=== PATIENT | male | born 1990 | race Caucasian/White ===

== ENCOUNTER 2017-10-15 15:47 | Emergency (ER) | payer OTHER ==
[~2017-10-15] VITALS: Ht 167.6 cm; Wt 88.6 kg
[~2017-10-15 15:47] MED LIST: AZIT250T12 PO; BENZ200C51 PO; CYCL5TAB; HYDR-34; IBUP-1780; ONDA4TAB8 SL; OXYC-197 PO; PRED-501 PO; RT-ALBUINH IH
--- NOTE | 2017-10-15 16:08 | ED Back Pain ---
General Chief Complaint: Back Problems Stated Complaint: L LEG AND BACK PAIN, L FOOT NUMBNESS Source of Information: Patient Exam Limitations: No Limitations History of Present Illness Date Seen by Provider: Oct 15, 2017 Time Seen by Provider: 16:03 Initial Comments Patient presents to the emergency room with complaints of low back pain numbness and tingling of the left leg for 3 weeks he states that he is been seen twice by urgent cares and has been put on gabapentin steroids and muscle relaxers. Patient reports numbness to the genitals and having to force himself to urinate. Denies recent injury fever chills history of cancer. History of bulging disks in the past. Location: Lumbar Spine Timing/Duration: Other (3 weeks) Severity: Mild Pain/Injury Location: Back Radiation: Buttocks, Feet, Lower Legs (left) Method of Injury: Unknown Associated Symptoms: numbness in legs/feet (left leg), other (numbness to the genitals) Allergies and Home Medications Allergies Coded Allergies: Penicillins (Verified Allergy, Unknown, 09/26/06) Home Medications Albuterol Sulfate 8.5 Gm Hfa.aer.ad, 1-4 PUFF IH Q4H PRN for SHORTNESS OF BREATH , #1 Prescribed by: JOSE KERN on 11/21/15 0905 Azithromycin 250 Mg Tablet, 250 MG PO UD, #6 TAKE 2 TABLETS ON DAY ONE THEN TAKE 1 TABLET DAILY FOR FOUR MORE DAYS Prescribed by: JOSE KERN on 11/21/15 0905 Benzonatate 200 Mg Capsule, 200 MG PO TID PRN for COUGH, #20 Prescribed by: JOSE KERN on 11/21/15 0905 Cyclobenzaprine HCl 5 Mg Tablet, #30 (Reported) Hydrocodone Bit/Acetaminophen 1 Each Tablet, #56 (Reported) Ibuprofen 800 Mg Tablet, #90 (Reported) Oxycodone HCl/Acetaminophen 1 Each Tablet, 1-2 EACH PO Q6H PRN for PAIN, #20 Prescribed by: JOSE KERN on 06/07/15 1349 Prednisone 20 Mg Tablet, 20 MG PO DAILY, #20 Prescribed by: JOSE KERN on 11/21/15 0905 Constitutional: no symptoms reported, see HPI EENTM: see HPI, no symptoms reported Respiratory: no symptoms reported, see HPI Cardiovascular: no symptoms reported, see HPI Gastrointestinal: no symptoms reported, see HPI Genitourinary: see HPI, other (numbness to the genitals, feels like he has to force himself to urinate) Musculoskeletal: see HPI, back pain Skin: no symptoms reported Psychiatric/Neurological: No Symptoms Reported, See HPI Past Qcguulu-Sqiuhu-Hjonfn Hx Patient Social History Recent Foreign Travel: No Contact w/Someone Who Travel: No Immunizations Up To Date Tetanus Booster (TDap): More than 5yrs Date of Influenza Vaccine: Jun 16, 2015 Surgeries Surgeries: Appendectomy Reproductive System Hx Reproductive Disorders: No Sexually Transmitted Disease: No Genitourinary Genitourinary Disorders: Kidney Stones Family Medical History Significant Family History: Heart Disease, Cancer, CAD Under 55 Years Old, DVT/ PE, Diabetes, Hypertension Physical Exam Vital Signs Vital Signs - First Documented 10/15/17 16:00 Temp 97.1 Pulse 86 Resp 20 B/P (MAP) 153/100 (117) Pulse Ox 99 O2 Delivery Room Air Capillary Refill : General Appearance: No Apparent Distress, WD/WN Respiratory: No Accessory Muscle Use, No Respiratory Distress Back: Normal Inspection, Other (positive left straight leg test) Neurologic/Psychiatric: Alert, Oriented x3, Other (patellar reflexes equal and present bilaterally. Bilaterally lower flexion and extension 5 out of 5) Skin: Normal Color, Warm/Dry Progress/Results/Core Measures Results/Orders Lab Results Laboratory Tests Test 10/15/17 16:35 Range/Units Urine Color YELLOW Urine Clarity CLEAR Urine pH 7 5-9 Urine Specific Kemp 1.010 L 1.016-1.022 Urine Protein NEGATIVE NEGATIVE Urine Glucose (UA) NEGATIVE NEGATIVE Urine Ketones NEGATIVE NEGATIVE Urine Nitrite NEGATIVE NEGATIVE Urine Bilirubin NEGATIVE NEGATIVE Urine Urobilinogen 1 NORMAL MG/DL Urine Leukocyte Esterase 1+ H NEGATIVE Urine RBC (Auto) NEGATIVE NEGATIVE Urine RBC NONE /HPF Urine WBC 2-5 /HPF Urine Crystals PRESENT H /LPF Urine Amorphous Sediment MOD KAMLESH PHOSPHATE H /LPF Urine Bacteria NEGATIVE /HPF Urine Casts NONE /LPF Urine Mucus MODERATE H /LPF Urine Culture Indicated NO Urine Opiates Screen NEGATIVE NEGATIVE Urine Oxycodone Screen POSITIVE H NEGATIVE Urine Methadone Screen NEGATIVE NEGATIVE Urine Propoxyphene Screen NEGATIVE NEGATIVE Urine Barbiturates Screen NEGATIVE NEGATIVE Ur Tricyclic Antidepressants Screen NEGATIVE NEGATIVE Urine Phencyclidine Screen NEGATIVE NEGATIVE Urine Amphetamines Screen NEGATIVE NEGATIVE Urine Methamphetamines Screen NEGATIVE NEGATIVE Urine Benzodiazepines Screen NEGATIVE NEGATIVE Urine Cocaine Screen NEGATIVE NEGATIVE Urine Cannabinoids Screen NEGATIVE NEGATIVE My Orders Orders - NICKY LOPEZ APRN Mri Lumbar Spine W/O Contrast (10/15/17 16:02) Ua Culture If Indicated (10/15/17 16:15) Drug Screen Stat (Urine) (10/15/17 16:15) Vital Signs/I&O Vital Sign - Last 12Hours 10/15/17 16:00 Temp 97.1 Pulse 86 Resp 20 B/P (MAP) 153/100 (117) Pulse Ox 99 O2 Delivery Room Air Diagnostic Imaging Diagonstic Imaging: MRI Comments NAME: LOUISA LEWIS [facility] REC#: [id number] PT STATUS: REG ER : 1990 PHYSICIAN: NICKY LOPEZ APRN ADMIT DATE: 10/15/17/ER Signed Date of Exam:10/15/17 MRI LUMBAR SPINE W/O CONTRAST PROCEDURE: MRI lumbar spine. TECHNIQUE: Multiplanar, multisequence MRI of the lumbar spine was performed without contrast. INDICATION: Low back pain with left leg sciatica for three weeks. FINDINGS: There is normal height and alignment of the lumbar vertebral bodies. The upper levels are normal. At L4-5, there is a broad-based disc protrusion slightly centered to the left, which is causing mass effect upon the left lateral recess. There is no bony stenosis. L5-S1 is normal. IMPRESSION: There is broad-based disc protrusion slightly eccentric to the left at L4-5. Dictated by: Dictated on workstation # [id number] Dict: 10/15/171816 Trans: 10/15/171819 [id number] Interpreted by: FILI MILLER MD Electronically signed by: FILI MILLER MD 10/15/171819 Departure Communication (Admissions) Progress Notes 1835- Dr. Chandler from orthopedics is not on-call tonight but was gracious enough to take my call and answers questions. He agrees that this could be followed up in the outpatient setting but does not require immediate surgical consult and since the patient has sensation of needing to urinate that would make this unlikely to be a neurogenic bladder symptom. Impression Impression: Primary Impression: Lumbar radiculopathy Disposition: 01 HOME, SELF-CARE Condition: Stable Departure-Patient Inst. Decision time for Depature: 18:36 Referrals: ALTAGRACIA CHANDLER,LOCAL PHYSICIAN (PCP) Primary Care Physician Patient Instructions: Low Back Pain (DC) Add. Discharge Instructions: 1. Call Dr. Chandler tomorrow to make an appointment to be seen whenever they can get nightly 2. Return to ER for any worsening symptoms or other concerns. Follow-up with your primary care provider is well within 2 weeks. All discharge instructions reviewed with patient and/or family. Voiced understanding. Scripts Hydrocodone/Acetaminophen ([place] 5-325 Tablet) 1 Each Tablet 1 EACH PO Q4H Y for PAIN-SEVERE, #20 TAB Prov: NICKY LOPEZ APRN 10/15/17 Work/School Note: Work Release Form Date Seen in the Emergency Department: Oct 15, 2017 Return to Work: Oct 18, 2017 NICKY LOPEZ APRN Oct 15, 2017 16:08
[2017-10-15 16:42] LABS: BILIRUBIN,URINE NEGATIVE (NEGATIVE); CLARITY,URINE CLEAR; COLOR,URINE YELLOW; GLUCOSE, URINE (UA) NEGATIVE (NEGATIVE); KETONES,URINE NEGATIVE (NEGATIVE); LEUKOCYTE ESTERASE ,URINE 1+ (NEGATIVE); NITRITE,URINE NEGATIVE (NEGATIVE); PH,URINE 7 (5-9); PROTEIN,URINE NEGATIVE (NEGATIVE); UROBILINOGEN,URINE 1 MG/DL (NORMAL)
[2017-10-15 16:55] LABS: AMPHETAMINE SCREEN, URINE NEGATIVE (NEGATIVE); BARBITURATE SCREEN URINE NEGATIVE (NEGATIVE); BENZODIAZEPINES SCREEN URINE NEGATIVE (NEGATIVE); CANNABINOID SCREEN, URINE NEGATIVE (NEGATIVE); COCAINE SCREEN URINE NEGATIVE (NEGATIVE); METHADONE STAT NEGATIVE (NEGATIVE); METHAMPHETAMINE SCREEN URINE S NEGATIVE (NEGATIVE); OPIATE SCREEN URINE NEGATIVE (NEGATIVE); OXYCODONE STAT POSITIVE (NEGATIVE); PROPOXYPHENE STAT NEGATIVE (NEGATIVE); TRICYCLIC ANTIDEPRESSANTS SCRE NEGATIVE (NEGATIVE)
[2017-10-15 17:35] LABS: AMORPHOUS SEDIMENT,UR MOD AMOR PHOSPHATE /LPF; BACTERIA,URINE NEGATIVE /HPF
--- NOTE | 2017-10-15 18:19 | Diagnostic Imaging Report ---
PROCEDURE: MRI lumbar spine. TECHNIQUE: Multiplanar, multisequence MRI of the lumbar spine was performed without contrast. INDICATION: Low back pain with left leg sciatica for three weeks. FINDINGS: There is normal height and alignment of the lumbar vertebral bodies. The upper levels are normal. At L4-5, there is a broad-based disc protrusion slightly centered to the left, which is causing mass effect upon the left lateral recess. There is no bony stenosis. L5-S1 is normal. IMPRESSION: There is broad-based disc protrusion slightly eccentric to the left at L4-5. Dictated by: Dictated on workstation # [id number]
[2017-10-15] MEDS ORDERED: HYDR-757 PO (18:37)
[2017-10-15 18:45] VITALS: BP 153/100
--- OUTSIDE RECORDS SUMMARY | 2017-10-17 14:27 | XMS REPORT ---
Author Author AZAM SANTOS Organization [facility] Address [address] [place] [address] Care Team Providers Care Supervisor Pairing And Inspecting Name Role Phone AZAM SANTOS Unavailable PROBLEMS Type Condition ICD9-CM Code [id number] Code Onset Dates Condition Status SNOMED Code Problem Pain in unspecified hip M25.559 Active 106298360 Problem Low back pain M54.5 Active 683114562 Problem Chronic pain G89.29 Active 98460699 Problem Hx of hyperlipidemia Z86.39 Active 414607942 ALLERGIES Substance Reaction Event Type Date Status Penicillin G Benzathine Unknown Drug Allergy December, Active SOCIAL HISTORY Never Assessed PLAN OF CARE Activity Details Follow Up prn Reason: VITAL SIGNS Height 66 in 2016-12-31 Weight 228.8 lbs 2016-12-31 Temperature 97.3 degrees Fahrenheit 2016-12-31 Heart Rate 84 bpm 2016-12-31 Respiratory Rate 20 2016-12-31 BMI 36.93 kg/m2 2016-12-31 Blood pressure systolic 130 mmHg 2016-12-31 Blood pressure diastolic 76 mmHg 2016-12-31 MEDICATIONS Medication Instructions Dosage Frequency Start Date End Date Duration Status Azithromycin 250 MG Orally Once a day 2 tablets on the first day, then 1 tablet daily for 4 days 24h December, December, 5 day(s) Active Ibuprofen 800 MG Orally Three times a day 1 tablet 8h 30 day(s) Active Cyclobenzaprine HCl 5 MG Orally at hs prn 1 tablet Active Hydrocodone-Acetaminophen 5-325 MG Orally twice daily 1 tablet as needed Active RESULTS Name Result Date Reference Range STREP A (IN HOUSE) 2016-12-31 STREP A negative Control + Lot # [id number] Exp date jun 19 PROCEDURES Procedure Date Ordered Result Body Site STREP A ASSAY W/OPTIC December 31, 2016 IMMUNIZATIONS No Known Immunizations MEDICAL (GENERAL) HISTORY Type Description Date Medical History Chronic hip and back pain Surgical History hip surgery 04/2012 Surgical History appendectomy 09/2006 Hospitalization History Surgery(s) only
--- OUTSIDE RECORDS SUMMARY | 2017-10-17 14:27 | XMS REPORT | Continuity of Care Document ---
Author Author [facility] Address [address] [place] [address] Care Team Providers Care Sap Portal Consultant Name Role Phone Unavailable Unavailable Insurance Providers Payer Name Policy Number Subscriber Name Relationship * [id number] LOUISA LEWIS PATIENT/SELF Advance Directives Directive Response Recorded Date/Time Advance Directive Information: AD INFO NOT OBTAINABLE 04/13/17 12:05pm Chief Complaint and Reason for Visit Reason for Visit BACK PAIN Problems Active Medical Problems Problem Onset Date Recorded Date Status Low back pain Unknown 04/13/17 Active Medications Current Home Medications Medication Dose Units Route Directions Days/Qty Instructions Start Date Hydrocodone/Acetaminophen (Hydrocodone/Apap 5/325) 1 EACH TABLET 1 TAB BY MOUTH EVERY 6 HOURS NEEDED PRN pain 15 04/13/17 Ibuprofen* (MOTRIN*) 200 MG TABLET 800 MG BY MOUTH EVERY 6 HOURS NEEDED PRN PAIN [MUSCLE RELAXANT] (Unknown Strength) TAB Unknown Dose BY MOUTH 3 TIMES DAILY NEEDED PRN MUSCLE SPASMS Prednisone 20 MG TABLET 20 MG BY MOUTH THREE TIMES DAILY 15 04/13/17 Social History No social history. Hospital Discharge Instructions No hospital discharge instructions. Plan of Care Discharge Date 04/13/17 Disposition HOME/SELF CARE Condition at Discharge Improved Instructions/Education Provided Sciatica (ED) Acute Low Back Pain (ED) How to Quit Using Smokeless Tobacco (ED) Prescriptions See Medications Section Additional Instructions/Education Follow up early next week for a recheck and a possible MRI. Return to the ED as needed. Care Plan and Goals Problem: Back Pain Goal: Relief of back pain. Plan: Refer to patient instructions provided. Functional Status No functional status results. Allergies, Adverse Reactions, Alerts Allergen Type Severity Reaction Status Last Updated PENICILLINS Allergy Unknown Active 04/13/17 Immunizations Name Date Given Type *Flu Shot: Historical *Tetanus Shot: Up To Date Historical Vital Signs Vital Reading Collection Date/Time Result Blood Pressure 04/13/17 2:08pm 141/75 Patient Temperature 04/13/17 2:08pm 97.7 Temperature Source 04/13/17 12:03pm Oral Respiratory Rate 04/13/17 2:08pm 20 Pulse Rate 04/13/17 2:08pm 82 Bedside Pulse Oximetry 04/13/17 2:08pm 98 Height 04/13/17 12:03pm 5 ft 6 in Weight 04/13/17 12:03pm 220 lb 0 oz Body Mass Index 04/13/17 12:03pm 35.[address] [address] ED PHYSICIAN DOCUMENTATION Patient Name: LOUISA LEWIS : [birth year] Unit #: [id number] Patient's Service Date: 04/13/17 ED Physician: Jinny Weaver MD (ED) Primary Physician: History of Present Illness General Chief Complaint Back Pain Stated Complaint BACK PAIN Time Seen by Provider 1230 Source patient Exam Limitations no limitations History of Present Illness Initial Comments The patient was bending over this morning and developed severe back pain radiating down both legs. Location back Context while bending over Quality sharp Severity severe Duration just prior to arrival Timing continuous Modifying Factors worse with movement Allergies Coded Allergies: PENICILLINS (04/13/17) Home Medications Reported Medications [MUSCLE RELAXANT] (Unknown Dose) BY MOUTH TID PRN PRN MUSCLE SPASMS Ibuprofen* (MOTRIN*) 800 MG BY MOUTH Q6H PRN PRN PAIN Review of Systems Review of Systems Was ROS Completed? Yes Constitutional Reports diaphoresis, Denies fever, Denies chills ENT Reports nose congestion (last week, none now) Respiratory Reports cough (last week, none now) Gastrointestinal Denies abdominal pain, Denies constipation, Denies diarrhea, Denies nausea, Denies vomiting Genitourinary Denies dysuria, Denies hematuria Musculoskeletal Reports back pain, Denies neck pain Neurological Reports weakness (focal) (both legs), Denies numbness, Denies tingling Past Medical History Past Medical History Medical History low back pain from disc disease, kidney stones Surgical History appendectomy Social History Smoker Never smoker Other Tobacco Use Chewing Tobacco Alcohol (Age 13 & Up) occasionally Physical Exam Physical Exam Nursing Assessment Reviewed Yes Initial Vital Signs Vital Signs Result Date Time Pulse Ox 97 04/13 1203 B/P 162/106 04/13 1203 Temp 97.1 04/13 1203 Pulse 102 04/13 1203 Resp 24 04/13 1203 Constitutional well developed, well nourished, severe distress Ear, Nose, Throat hearing grossly normal Neck normal inspection, supple Respiratory no respiratory distress, normal breath sounds, no accessory muscle use Cardiovascular regular rate/rhythm, no murmur Gastrointestinal soft, non tender, normal bowel sounds Musculoskeletal midline vertebral tender (lumbar) Skin normal color, diaphoresis Neurological no sensory deficit, focal weakness (both legs) Psychiatric alert, oriented, normal mood/affect Results Results Labs Laboratory Tests 04/13 1324 Chemistry Sodium (135 - 150 mmol/L) 141 Potassium (3.4 - 5.2 mmol/L) 3.7 Chloride (100 - 112 mmol/L) 106 Carbon Dioxide (18 - 30 mEq/L) 21 Anion Gap (8 - 16 mmol/L) 14 BUN (5 - 21 mg/dL) 14 Creatinine (0.60 - 1.30 mg/dL) 1.09 GFR Calculation (> 60 mL/Min) > 60 Glucose (70 - 99 mg/dL) 108 H Calcium (8.6 - 10.5 mg/dL) 9.3 Total Bilirubin (0.0 - 1.2 mg/dL) 0.5 AST (6 - 37 U/L) 26.0 ALT (12 - 78 U/L) 31.0 Alkaline Phosphatase (50 - 136 U/L) 74.0 Total Protein (6.4 - 8.2 g/dL) 7.7 Albumin (3.3 - 4.5 g/dL) 3.6 Albumin/Globulin Ratio (0.7 - 2.0) 0.9 Hematology WBC (4.5 - 11.0 10^3/uL) 11.7 H RBC (4.70 - 6.00 10^6/uL) 5.31 Hgb (13.5 - 17.5 g/dl) 14.8 Hct (41 - 53 %) 43.1 MCV (80 - 100 fL) 81.2 MCH (25.0 - 34.0 pg) 27.9 MCHC (31.0 - 36.0 g/dL) 34.3 RDW (11.0 - 15.0 %) 12.8 Plt Count (130 - 400 10^3/uL) 406 H MPV (7.0 - 11.0 fL) 7.1 Neutrophils % (43.0 - 72.0 %) 69.3 Lymphocytes % (15.0 - 45.0 %) 22.1 Monocytes % (1.0 - 12.0 %) 6.2 Eosinophils % (0.0 - 6.0 %) 1.7 Basophils % (0.0 - 2.0 %) 0.7 Neutrophils # (1.0 - 8.0 10^3/uL) 8.1 H Lymphocytes # (1.0 - 3.0 10^3/uL) 2.6 Monocytes # (0.0 - 1.0 10^3/uL) 0.7 Eosinophils # (0.0 - 0.4 10^3/uL) 0.2 Basophils # (0.0 - 0.2 10^3/uL) 0.1 CT Reviewed by ED provider Yes (CT abdomen and pelvis) Progress Note Medications Medications Medications Given in the ED Sig/Wilfrid Start time Last Medication Dose Route Stop Time Status Admin Fentanyl Citrate 50 MCG ONE ONE 04/13 1350 DC 04/13 (FENTANYL) IV 04/13 1351 1356 Fentanyl Citrate 50 MCG ONE ONE 04/13 1211 DC 04/13 (FENTANYL) IV 04/13 1212 1246 Hydromorphone HCl 1 MG X1ED STA 04/13 1210 CAN (Dilaudid) IV 04/13 1211 Ondansetron HCl 4 MG X1ED STA 04/13 1210 DC 04/13 (ZOFRAN) IV 04/13 1211 1245 Sodium Chloride 1,000 ML .Q1H 04/13 1210 DC 04/13 (0.9% Sodium IV 04/13 1309 1246 Chloride) Departure Departure Clinical Impression Primary Impression: Low back pain Qualifiers: Chronicity: acute Back pain laterality: midline Sciatica presence: with sciatica Sciatica laterality: bilateral sciatica Qualified Code: M54.42 - Lumbago with sciatica, left side Time of Disposition 1358 Disposition HOME/SELF CARE Condition Improved Tobacco Education Education Handout Given Patient Instructions Acute Low Back Pain (ED), How to Quit Using Smokeless Sciatica (ED) Additional Instructions Follow up early next week for a recheck and a possible MRI. Return to the ED as needed. Prescriptions Current Visit Scripts Hydrocodone/Acetaminophen (Hydrocodone/Apap 5/325) 1 TAB BY MOUTH Q6H PRN PRN pain #15 TAB Prednisone 20 MG BY MOUTH TID #15 TAB Jinny Weaver MD Electronically Signed 04/13/17 1358 Procedures No Known History of Procedures. Encounters Encounter Location Arrival/Admit Date Discharge/Depart Date Attending Provider Departed Emergency [facility] 04/13/17 11:49am 04/13/17 2:08pm [place] (ED) Jinny Ewing MD Encounter Diagnosis Low back pain
--- OUTSIDE RECORDS SUMMARY | 2017-10-17 14:28 | XMS REPORT ---
Author Author AZAM SANTOS [facility] [employer] Address Unknown Phone Unavailable Care Team Providers Care Mechanical Process Engineer Name Role Phone AZAM SANTOS CP Unavailable Allergies, Adverse Reactions, Alerts Substance Reaction Event Type Penicillin G Benzathine Info Not Available Drug Allergy Problems Problem Type Condition Code Onset Dates Condition Status Problem Pain in unspecified hip M25.559 Active Problem Low back pain M54.5 Active Problem Chronic pain G89.29 Active Problem Hx of hyperlipidemia Z86.39 Active Assessment Bug bites, initial encounter W57.XXXA Active Medications Medication Code System Code Instructions Start Date End Date Status Dosage Keflex [facility] [address]-77 500 MG Orally three times daily Jul 03, 2016 Jul 13, 2016 1 capsule Permethrin [facility] [address]-85 5 % Externally apply cream before bed leave on for 8-10 hours then shower off, may repeat in 7 days Jul 03, 2016 Jul 05, 2016 1 application to affected area Procedures Procedure Coding System Code Date Office Visit, Est Pt., Level 3 CPT-4 89390 Jul 03, 2016 Vital Signs Date/Time: Jul 03, 2016 Cardiac Monitoring Heart Rate 96 bpm Weight 225.0 lbs Height 66 in BMI 36.31 Index Blood Pressure Diastolic 90 mmHg Blood Pressure Systolic 126 mmHg Results No Known Results Summary Purpose eClinicalWorks Submission
--- OUTSIDE RECORDS SUMMARY | 2017-10-17 14:28 | XMS REPORT ---
Author Author ERIC GALVIN [facility] [employer] Address Unknown Phone Unavailable Care Team Providers Care Gre Tutor Name Role Phone ERIC GALVIN CP Unavailable Allergies, Adverse Reactions, Alerts Substance Reaction Event Type Penicillin G Benzathine Info Not Available Drug Allergy Problems Problem Type Condition Code Onset Dates Condition Status Assessment School health examination Z02.0 Active Problem Pain in unspecified hip M25.559 Active Problem Low back pain M54.5 Active Problem Chronic pain G89.29 Active Assessment Pain in unspecified hip M25.559 Active Assessment Low back pain M54.5 Active Problem Hx of hyperlipidemia Z86.39 Active Assessment Chronic pain G89.29 Active Medications Medication Code System Code Instructions Start Date End Date Status Dosage Cyclobenzaprine HCl [facility] [address]-59 5 MG Orally at hs prn 1 tablet Hydrocodone-Acetaminophen [facility] [address]-50 5-325 MG Orally twice daily 1 tablet as needed Ibuprofen [facility] [address]-97 800 MG Orally Three times a day 1 tablet Procedures Procedure Coding System Code Date Office Visit, Est Pt., Level 4 CPT-4 49298 Jul 11, 2016 URINALYSIS, AUTO, W/O SCOPE CPT-4 35957 Jul 11, 2016 Vital Signs Date/Time: Jul 11, 2016 Cardiac Monitoring Heart Rate 80 bpm Weight 222.2 lbs Height 66 in BMI 35.86 Index Blood Pressure Diastolic 80 mmHg Blood Pressure Systolic 124 mmHg Results Name Result Date Reference Range Unit Abnormality Flag UA LONG DIP (IN HOUSE) ----JASMYN negative 20160711 ----NIT negative 20160711 ----SG 1.010 20160711 ----KET negative 20160711 ----ALEJANDRA negative 20160711 ----GLU negative 20160711 ----Odor none 20160711 ----pH 6.0 20160711 ----BLO negative 20160711 ----URO 0.2 20160711 ----Protein negative 20160711 ----Lot # [id number] ----Exp date [id number] ----Clarity clear 20160711 ----Color yellow [id number] Summary Purpose eClinicalWorks Submission
--- OUTSIDE RECORDS SUMMARY | 2017-10-17 14:28 | XMS REPORT ---
Author Author BLANCA RITTER [facility] Address [address] [place] [address] Care Team Providers Care Rn Allergy Name Role Phone STONE BLANCA Unavailable PROBLEMS Type Condition ICD9-CM Code NFY27-KD Code Onset Dates Condition Status SNOMED Code Problem Pain in unspecified hip M25.559 Active 454830829 Problem Low back pain M54.5 Active 759313288 Problem Chronic pain G89.29 Active 53193256 Problem Hx of hyperlipidemia Z86.39 Active 438216184 ALLERGIES Substance Reaction Event Type Date Status Penicillin G Benzathine Unknown Drug Allergy December, Active SOCIAL HISTORY Never Assessed PLAN OF CARE VITAL SIGNS Height 66 in 2017-01-16 Weight 230.8 lbs 2017-01-16 Temperature 97.0 degrees Fahrenheit 2017-01-16 Heart Rate 88 bpm 2017-01-16 Respiratory Rate 20 2017-01-16 BMI 37.25 kg/m2 2017-01-16 Blood pressure systolic 124 mmHg 2017-01-16 Blood pressure diastolic 86 mmHg 2017-01-16 MEDICATIONS Medication Instructions Dosage Frequency Start Date End Date Duration Status Zofran 4 MG Orally 3 times a day 1 tablet 8h December, Active Ibuprofen 800 MG Orally Three times a day 1 tablet 8h 30 day(s) Active Cyclobenzaprine HCl 5 MG Orally at hs prn 1 tablet Active Hydrocodone-Acetaminophen 5-325 MG Orally twice daily 1 tablet as needed Active RESULTS No Results PROCEDURES No Known procedures IMMUNIZATIONS No Known Immunizations MEDICAL (GENERAL) HISTORY Type Description Date Medical History Chronic hip and back pain Surgical History hip surgery 04/2012 Surgical History appendectomy 09/2006 Hospitalization History Surgery(s) only
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
== END 2017-10-15 18:45 | disposition home or self-care (01) ==
LOC: EDUNIT# 15:47 → ER 15:50
DX: M54.16 Radiculopathy, lumbar region (principal); Z88.0 Allergy status to penicillin; Z79.52 Long term (current) use of systemic steroids; Z90.49 Acquired absence of other specified parts of digestive tract; Z87.442 Personal history of urinary calculi; Z82.49 Family history of ischemic heart disease and other diseases of the circulatory system
CPT/HCPCS: 72148; 80306; 81000; 99282

== ENCOUNTER 2017-10-20 17:23 | Emergency (ER) | payer OTHER ==
[~2017-10-20] VITALS: Ht 167.6 cm; Wt 88.5 kg
[~2017-10-20 17:23] MED LIST changes: +HYDR-757 PO
[2017-10-20 17:50] VITALS: BP 167/82
== END 2017-10-20 19:08 | disposition left against medical advice (07) ==
LOC: EDUNIT# 17:23 → ER 17:24
DX: M51.26 Other intervertebral disc displacement, lumbar region (principal)
CPT/HCPCS: 99281

== ENCOUNTER 2022-03-12 13:45 | Emergency (ER) | payer OTHER ==
[~2022-03-12] VITALS: Ht 167.7 cm; Wt 102.1 kg
[~2022-03-12 13:45] MED LIST changes: +HYDR-4226 PO; -HYDR-757 PO; -OXYC-197 PO; +OXYC1TAB87 PO
--- NOTE | 2022-03-12 14:40 | ED Abdominal Pain ---
General Chief Complaint: Abdominal/GI Problems Stated Complaint: RLQ PAIN,RECTAL BLEEDING Nursing Triage Note: pt ambulatory to room. pt states he has had dark and bright blood in his stool starting today. pt has low abdomen pain in the middle he states. pt describes the pain as "a dull pulling" constant pain. pt has had nausea today as well Source of Information: Patient Exam Limitations: No Limitations History of Present Illness Date Seen by Provider: Mar 12, 2022 Time Seen by Provider: 13:45 Initial Comments Patient to the ER by private conveyance with chief complaint that he is having some low abdominal pain suprapubic region. Dull pulling sensation. Not having any dysuria fevers chills but he is having nausea. He noticed some bright red blood in his stool as well as some dark bloody stool. No history of hemorrhoids or fissures. He is having a little bit of rectal pain as well as his abdominal pain which he rates as moderate. He took some ibuprofen yesterday for his pain but nothing today. Patient has a history of appendectomy. For the past several years he tends to have mostly loose stools but has never been told he has irritable bowel symptom. No history of endoscopy. He has an uncle with a history of what may be irritable versus inflammatory bowel disease. Allergies and Home Medications Allergies Coded Allergies: Penicillins (Verified Allergy, Unknown, 09/26/06) hydromorphone (Verified Adverse Reaction, Mild, 03/12/22) pt does not like the way it makes him feel Patient Home Medication List Home Medication List Reviewed: Yes Albuterol Sulfate (Proair Hfa) 8.5 Gm Hfa.aer.ad, 1-4 PUFF IH Q4H PRN for SHORTNESS OF BREATH Prescribed by: JOSE KERN on 11/21/15904 Azithromycin (Azithromycin) 250 Mg Tablet, 250 MG PO UD Prescribed by: JOSE KERN on 11/21/15904 Benzonatate (Benzonatate) 200 Mg Capsule, 200 MG PO TID PRN for COUGH Prescribed by: JOSE KERN on 11/21/15904 Cyclobenzaprine HCl (Cyclobenzaprine HCl) 5 Mg Tablet, (Reported) Entered as Reported by: EMPERATRIZ JIMENEZ on 11/16/15 1646 Hydrocodone Bit/Acetaminophen (Lortab 7.5 Mg Tablet) 1 Each Tablet, (Reported) Entered as Reported by: EMPERATRIZ JIMENEZ on 11/16/15 1646 Hydrocodone/Acetaminophen (Hydrocodone/Acetaminophen 5 MG/325 MG TAB) 1 Each Tablet, 1 EACH PO Q4H PRN for PAIN-SEVERE Prescribed by: NICKY LOPEZ on 10/15/17 1837 Hydrocodone/Acetaminophen (Hydrocodone-Acetamin 5-325 mg) 5 Mg-325 Mg Tablet, 1 TAB PO Q6H PRN for PAIN-MODERATE (5-7) Prescribed by: MARGO PALOMO on 03/12/22 185 Ibuprofen (Ibuprofen) 800 Mg Tablet, (Reported) Entered as Reported by: EMPERATRIZ JIMENEZ on 11/16/15 1646 Ondansetron (Ondansetron Odt) 4 Mg Tab.rapdis, 4-8 MG PO Q6H PRN for NAUSEA/VOMITING Prescribed by: MARGO PALOMO on 03/12/22 185 Oxycodone HCl/Acetaminophen (Percocet 5-325 mg Tablet) 1 Each Tablet, 1-2 EACH PO Q6H PRN for PAIN Prescribed by: JOSE KERN on 06/07/15 1349 Prednisone (Deltasone) 20 Mg Tablet, 20 MG PO DAILY Prescribed by: JOSE KERN on 11/21/15 0905 Review of Systems Review of Systems Constitutional: No chills, No diaphoresis EENTM: No Blurred Vision, No Double Vision Respiratory: Denies Cough, Denies Shortness of Air Cardiovascular: Denies Chest Pain, Denies Lightheadedness Gastrointestinal: Denies Constipated, Denies Diarrhea Genitourinary: Denies Burning, Denies Discharge Musculoskeletal: No back pain, No joint pain Skin: No pruritus, No rash Psychiatric/Neurological: Denies Headache, Denies Numbness All Other Systems Reviewed Negative Unless Noted: Yes Past Fzjlucb-Cndmfb-Qvdhzm Hx Patient Social History Tobacco Use?: No Use of E-Cig and/or Vaping dev: No Immunizations Up To Date Tetanus Booster (TDap): More than 5yrs Seasonal Allergies Seasonal Allergies: No Past Medical History Surgeries: Yes (LT hip arthroscopic, appendectomy) Appendectomy, Orthopedic Respiratory: No Cardiac: No Neurological: No Reproductive Disorders: No Sexually Transmitted Disease: No Genitourinary: No Kidney Stones Gastrointestinal: No Musculoskeletal: Yes (CHRONIC PAIN) Back Injury Endocrine: No Cancer: No Psychosocial: No Blood Disorders: Yes (PROTEIN S deficiency) Family Medical History Heart Disease, Cancer, CAD Under 55 Years Old, DVT/PE, Diabetes, Hypertension Physical Exam Vital Signs Vital Signs - First Documented 03/12/22 13:54 Temp 36.4 Pulse 83 Resp 18 B/P (MAP) 138/109 (119) Pulse Ox 100 Capillary Refill : Height/Weight/BMI Height: 5'6.00" Weight: 195lbs. 6.0oz. 88.148123qg; 36.00 BMI Method:Stated General Appearance: WD/WN, moderate distress HEENT: PERRL/EOMI; No pharynx normal (Mildly dry oral mucosa) Neck: full range of motion, supple, normal inspection Respiratory: lungs clear, normal breath sounds, no respiratory distress, no accessory muscle use Cardiovascular: normal peripheral pulses, regular rate, rhythm, no edema Gastrointestinal: normal bowel sounds, soft, no organomegaly, tenderness (Mild suprapubic tenderness and periumbilical tenderness.) Extremities: normal inspection, no pedal edema, normal capillary refill Neurologic/Psychiatric: alert, normal mood/affect, oriented x 3 Skin: normal color, warm/dry Progress/Results/Core Measures Results/Orders Lab Results Laboratory Tests Test 03/12/22 14:09 03/12/22 14:47 Range/Units White Blood Count 11.4 H 4.3-11.0 10^3/uL Red Blood Count 5.61 H 4.30-5.52 10^6/uL Hemoglobin 15.1 13.3-17.7 g/dL Hematocrit 46 40-54 % Mean Corpuscular Volume 82 80-99 fL Mean Corpuscular Hemoglobin 27 25-34 pg Mean Corpuscular Hemoglobin Concent 33 32-36 g/dL Red Cell Distribution Width 13.2 10.0-14.5 % Platelet Count 429 H 130-400 10^3/uL Mean Platelet Volume 8.8 L 9.0-12.2 fL Immature Granulocyte % (Auto) 0 % Neutrophils (%) (Auto) 72 42-75 % Lymphocytes (%) (Auto) 21 12-44 % Monocytes (%) (Auto) 6 0-12 % Eosinophils (%) (Auto) 1 0-10 % Basophils (%) (Auto) 1 0-10 % Neutrophils # (Auto) 8.2 H 1.8-7.8 X 10^3 Lymphocytes # (Auto) 2.3 1.0-4.0 X 10^3 Monocytes # (Auto) 0.6 0.0-1.0 X 10^3 Eosinophils # (Auto) 0.1 0.0-0.3 10^3/uL Basophils # (Auto) 0.1 0.0-0.1 10^3/uL Immature Granulocyte # (Auto) 0.0 0.0-0.1 10^3/uL Sodium Level 137 135-145 MMOL/L Potassium Level 4.0 3.6-5.0 MMOL/L Chloride Level 103 98-107 MMOL/L Carbon Dioxide Level 22 21-32 MMOL/L Anion Gap 12 5-14 MMOL/L Blood Urea Nitrogen 17 7-18 MG/DL Creatinine 0.97 0.60-1.30 MG/DL Estimat Glomerular Filtration Rate 106 BUN/Creatinine Ratio 18 Glucose Level 83 70-105 MG/DL Calcium Level 9.9 8.5-10.1 MG/DL Corrected Calcium 8.5-10.1 MG/DL Total Bilirubin 0.5 0.1-1.0 MG/DL Aspartate Amino Transf (AST/SGOT) 26 5-34 U/L Alanine Aminotransferase (ALT/SGPT) 33 0-55 U/L Alkaline Phosphatase 82 40-136 U/L C-Reactive Protein High Sensitivity 1.03 H 0.00-0.50 MG/DL Total Protein 8.4 H 6.4-8.2 GM/DL Albumin 4.8 H 3.2-4.5 GM/DL Lipase 39 8-78 U/L Urine Color YELLOW Urine Clarity CLEAR Urine pH 5.5 5-9 Urine Specific [place] >=1.030 1.016-1.022 Urine Protein NEGATIVE NEGATIVE Urine Glucose (UA) NEGATIVE NEGATIVE Urine Ketones NEGATIVE NEGATIVE Urine Nitrite NEGATIVE NEGATIVE Urine Bilirubin NEGATIVE NEGATIVE Urine Urobilinogen 0.2 < = 1.0 MG/DL Urine Leukocyte Esterase NEGATIVE NEGATIVE Urine RBC (Auto) NEGATIVE NEGATIVE Urine RBC NONE /HPF Urine WBC NONE /HPF Urine Crystals NONE /LPF Urine Bacteria NEGATIVE /HPF Urine Casts NONE /LPF Urine Mucus NEGATIVE /LPF Urine Culture Indicated NO My Orders Orders - MARGO PALOMO Ct Abdomen/Pelvis W (03/12/22 14:33) Ed Iv/Invasive Line Start (03/12/22 14:33) Ns Iv 1000 Ml (Sodium Chloride 0.9%) (03/12/22 14:45) Cbc With Automated Diff (03/12/22 14:33) Comprehensive Metabolic Panel (03/12/22 14:33) Hs C Reactive Protein (03/12/22 14:33) Lipase (03/12/22 14:33) Ketorolac Injection (Toradol Injection) (03/12/22 14:45) Ondansetron Injection (Zofran Injectio (03/12/22 14:45) Iohexol Injection (Omnipaque 350 Mg/Ml 1 (03/12/22 15:00) Received Contrast (Hold Metformin- Contr (03/12/22 15:00) Ns (Ivpb) (Sodium Chloride 0.9% Ivpb Bag (03/12/22 15:00) Sodium Chloride Flush (Catheter Flush Sy (03/12/22 15:00) Rx-Hydrocodone/Apap 5-325 Mg (Rx-Vicodin (03/12/22 19:15) Rx-Ondansetron Po (Rx-Zofran Po) (03/12/22 19:01) Medications Given in ED Current Medications Medications Dose Ordered Sig/Wilfrid Route Start Time Stop Time Status Last Admin Dose Admin Acetaminophen/ Hydrocodone Bitart 1 ea Q6H PRN PO 03/12/22 19:15 03/12/22 19:19 DC 03/12/22 19:15 1 EA Iohexol 100 ml ONCE ONCE IV 03/12/22 15:00 03/12/22 15:34 DC 03/12/22 15:53 100 ML Ketorolac Tromethamine 30 mg ONCE ONCE IVP 03/12/22 14:45 03/12/22 14:46 DC 03/12/22 14:42 30 MG Ondansetron HCl 4 mg ONCE ONCE IVP 03/12/22 14:45 03/12/22 14:46 DC 03/12/22 14:42 4 MG Sodium Chloride 10 ml NEEDED PRN IV 03/12/22 15:00 03/12/22 19:19 DC 03/12/22 15:53 10 ML Sodium Chloride 100 ml ONCE ONCE IV 03/12/22 15:00 03/12/22 15:34 DC 03/12/22 15:53 80 ML Vital Signs/I&O 03/12/22 03/12/22 13:54 19:15 Temp 36.4 Pulse 83 67 Resp 18 B/P (MAP) 138/109 (119) 138/97 Pulse Ox 100 98 Blood Pressure Mean: 119 Progress Progress Note #1: Time: 14:38 Progress Note Toradol for pain. He does not like opiates as he feels they make him feel like his head is swimming. Ondansetron for his nausea a liter of saline for his dehydration and to get a CT with IV contrast of his abdomen and pelvis. Labs including lipase. Suspect diverticulitis versus other Progress Note #2: Time: 18:50 Progress Note Nausea is gone after the Zofran. Pain is controlled. Labs are unremarkable. Suspect he may have an inflammatory bowel disease so we have encouraged him to stay away from NSAIDs and use hydrocodone, Tylenol, diet changes and follow-up this week or next with Dr. Encarnacion for potential endoscopy. Return precautions were discussed. Patient's questions were answered. Diagnostic Imaging Diagonstic Imaging: CT Plain Films/CT/US/NM/MRI: abdomen, pelvis Comments [facility], [place] NAME: LOUISA LEWIS [facility] REC#: [id number] PT STATUS: REG ER : 1990 PHYSICIAN: MARGO PALOMO MD ADMIT DATE: 03/12/22/ER Signed Date of Exam:03/12/22 CT ABDOMEN/PELVIS W PROCEDURE: CT abdomen and pelvis with contrast. TECHNIQUE: Multiple contiguous axial images were obtained through the abdomen and pelvis after administration of intravenous contrast. Auto Exposure Controls were utilized during the CT exam to meet ALARA standards for radiation dose reduction. All CT scans use one or more of the following dose optimizing techniques: automated exposure control, MA and/or KvP adjustment based on patient size and exam type or iterative reconstruction. INDICATION: Low pelvic pain COMPARISON: 06/07/2015 There is mild low-density throughout the liver indicating steatosis. There is no focal hepatic, pancreatic, adrenal gland or splenic abnormality. Kidneys are unremarkable with minimal punctate calcification in the lower pole of the kidneys, bilaterally. There is no evidence of hydronephrosis or ureteric filling defect. There are surgical findings at the expected location of the appendix. Unopacified bladder is unremarkable. No evidence of free fluid. No organized fluid collections identified. There is no evidence of pathologically enlarged adenopathy. There is central protrusion of the L4-L5 disc which indents the ventral thecal sac and results in [id number] spinal stenosis. IMPRESSION: Minimal nephrolithiasis without evidence of obstructive uropathy. Otherwise, no acute abnormality identified. Note is made of hepatic steatosis, previous appendectomy and focal protrusion of the L4-L5 disc. Dictated by: Dictated on workstation # [id number] Dict: 03/12/22 1610 Trans: 03/12/22 1644 CVB [id number] Interpreted by: ARLEN RUIZ MD Electronically signed by: ARLEN RUIZ MD 03/12/221643 Reviewed: Reviewed by Me Departure Impression Primary Impression: Colitis Additional Impression: Rectal bleeding Disposition: 01 HOME, SELF-CARE Condition: Improved Departure-Patient Inst. Decision time for Depature: 18:51 Referrals: IVA ENCARNACION DO NO,LOCAL PHYSICIAN (PCP) Primary Care Physician Patient Instructions: Bloody Stools, Adult (DC) Add. Discharge Instructions: I am concerned that she might have some kind of inflammatory bowel disease so stay away from NSAIDs such as ibuprofen Aleve or naproxen. You can use Tylenol 1000 mg every 8 hours. You can use hydrocodone 1 tablet every 6 hours as needed for severe pain. Ondansetron 1 or 2 tablets every 6 hours needed for nausea or vomiting. Call Dr. Encarnacion and request follow-up appointment this week or next. Return to the ER promptly if you are having significant worsening or intractable symptoms. All discharge instructions reviewed with patient and/or family. Voiced understanding. Scripts Ondansetron (Ondansetron Odt) 4 Mg Tab.rapdis 4-8 MG PO Q6H PRN for NAUSEA/VOMITING, #12 TAB 0 Refills Prov: MARGO PALOMO 03/12/22 Hydrocodone/Acetaminophen (Hydrocodone-Acetamin 5-325 mg) 5 Mg-325 Mg Tablet 1 TAB PO Q6H PRN for PAIN-MODERATE (5-7), #15 TAB 0 Refills Prov: MARGO PALOMO 03/12/22 Work/School Note: Work Release Form Date Seen in the Emergency Department: Mar 12, 2022 Return to Work: Mar 15, 2022 Restrictions: No Restrictions Copy Copies To 1: IVA ENCARNACION TITUS J Mar 12, 2022 14:39
[2022-03-12 14:45] LABS: BASOPHILS # (AUTO) 0.1 10^3/uL (0.0-0.1); BASOPHILS % (AUTO) 1 % (0-10); EOSINOPHILS # (AUTO) 0.1 10^3/uL (0.0-0.3); EOSINOPHILS % (AUTO) 1 % (0-10); HEMATOCRIT 46 % (40-54); HEMOGLOBIN 15.1 g/dL (13.3-17.7); LYMPHOCYTES # (AUTO) 2.3 X 10^3 (1.0-4.0); LYMPHOCYTES % (AUTO) 21 % (12-44); MEAN CORPUSCULAR HEMOGLOBIN 27 pg (25-34); MEAN CORPUSCULAR HGB CONC 33 g/dL (32-36); MEAN CORPUSCULAR VOLUME 82 fL (80-99); MEAN PLATELET VOLUME 8.8 fL (9.0-12.2); MONOCYTES # (AUTO) 0.6 X 10^3 (0.0-1.0); MONOCYTES % (AUTO) 6 % (0-12); NEUTROPHILS # (AUTO) 8.2 X 10^3 (1.8-7.8); NEUTROPHILS % (AUTO) 72 % (42-75); PLATELET COUNT 429 10^3/uL (130-400); WHITE BLOOD COUNT 11.4 10^3/uL (4.3-11.0)
[2022-03-12] MEDS ORDERED: ONDANSETRON 4 MG/2 ML (SDV) Z0FRAN IVP ONE (14:45)
[2022-03-12] MEDS ORDERED: NS IV 1000 ML 1,000 ML IV SCH (14:45)
[2022-03-12] MEDS ORDERED: KETOROLAC 30 MG/ML VIAL IVP ONE (14:45)
[2022-03-12 14:55] LABS: BILIRUBIN,URINE NEGATIVE (NEGATIVE); CLARITY,URINE CLEAR; COLOR,URINE YELLOW; GLUCOSE, URINE (UA) NEGATIVE (NEGATIVE); KETONES,URINE NEGATIVE (NEGATIVE); LEUKOCYTE ESTERASE ,URINE NEGATIVE (NEGATIVE); NITRITE,URINE NEGATIVE (NEGATIVE); PH,URINE 5.5 (5-9); PROTEIN,URINE NEGATIVE (NEGATIVE)
[2022-03-12 15:00] LABS: ALBUMIN 4.8 GM/DL (3.2-4.5); CHLORIDE 103 MMOL/L (98-107); SODIUM 137 MMOL/L (135-145)
[2022-03-12] MEDS ORDERED: NS 100 ML (IVPB) BAG IV ONE (15:00)
[2022-03-12] MEDS ORDERED: IOHEXOL 350 MG/ML 100 ML (OMNIPAQUE 350) VIAL IV ONE (15:00)
[2022-03-12] MEDS ORDERED: HOLD METFORMIN - RECEIVED CONTRAST 20 ML VIAL IV SCH (15:00)
[2022-03-12] MEDS ORDERED: CATHETER FLUSH 10 ML SYR IV PRN (15:00)
[2022-03-12 15:01] LABS: CALCIUM 9.9 MG/DL (8.5-10.1)
[2022-03-12 15:01] LABS: BACTERIA,URINE NEGATIVE /HPF
[2022-03-12 15:02] LABS: GLUCOSE 83 MG/DL (70-105); TOTAL PROTEIN 8.4 GM/DL (6.4-8.2)
[2022-03-12 15:03] LABS: CARBON DIOXIDE 22 MMOL/L (21-32)
[2022-03-12 15:04] LABS: BILIRUBIN,TOTAL 0.5 MG/DL (0.1-1.0)
[2022-03-12 15:06] LABS: ALKALINE PHOSPHATASE 82 U/L (40-136); CREATININE SERUM 0.97 MG/DL (0.60-1.30); GFR ESTIMATED 106
[2022-03-12 15:07] LABS: BUN/CREATININE RATIO 18
[2022-03-12 15:09] LABS: ALANINE AMINOTRANSFERASE 33 U/L (0-55); LIPASE 39 U/L (8-78)
--- NOTE | 2022-03-12 16:18 | Diagnostic Imaging Report ---
PROCEDURE: CT abdomen and pelvis with contrast. TECHNIQUE: Multiple contiguous axial images were obtained through the abdomen and pelvis after administration of intravenous contrast. Auto Exposure Controls were utilized during the CT exam to meet ALARA standards for radiation dose reduction. All CT scans use one or more of the following dose optimizing techniques: automated exposure control, MA and/or KvP adjustment based on patient size and exam type or iterative reconstruction. INDICATION: Low pelvic pain COMPARISON: 06/07/2015 There is mild low-density throughout the liver indicating steatosis. There is no focal hepatic, pancreatic, adrenal gland or splenic abnormality. Kidneys are unremarkable with minimal punctate calcification in the lower pole of the kidneys, bilaterally. There is no evidence of hydronephrosis or ureteric filling defect. There are surgical findings at the expected location of the appendix. Unopacified bladder is unremarkable. No evidence of free fluid. No organized fluid collections identified. There is no evidence of pathologically enlarged adenopathy. There is central protrusion of the L4-L5 disc which indents the ventral thecal sac and results in made-uy-wfhtgoeh spinal stenosis. IMPRESSION: Minimal nephrolithiasis without evidence of obstructive uropathy. Otherwise, no acute abnormality identified. Note is made of hepatic steatosis, previous appendectomy and focal protrusion of the L4-L5 disc. Dictated by: Dictated on workstation # [id number]
[2022-03-12] MEDS ORDERED: ACHD5005 PO (18:59)
[2022-03-12] MEDS ORDERED: ONDA4TAB11 PO (18:59)
[2022-03-12] MEDS ORDERED: RX-ONDANSETRON 4 MG ODT (ZOFRAN) PPK #4 PO STA (19:01)
[2022-03-12 19:15] VITALS: BP 138/97
== END 2022-03-12 19:17 | disposition home or self-care (01) ==
LOC: EDUNIT# 13:45 → ER 13:47
DX: K52.9 Noninfective gastroenteritis and colitis, unspecified (principal); Z90.49 Acquired absence of other specified parts of digestive tract
CPT/HCPCS: 36415; 74177; 80053; 81000; 82274; 83690; 85025; 86141